=== PATIENT | female | born 1990 | race Two or more races ===

== ENCOUNTER 2022-01-27 18:16 | Emergency (ER) | payer OTHER, MEDICAID ==
[~2022-01-27] VITALS: Ht 162.6 cm; Wt 60.0 kg
[2022-01-27 20:08] LABS: CLARITY URINE CLEAR (CLEAR); COLOR URINE YELLOW (YELLOW); KETONES URINE 1+ (NEGATIVE); LEUKOCYTE ESTERASE URINE 2+ (NEGATIVE); NITRITE URINE NEGATIVE (NEGATIVE); OCCULT BLOOD URINE TRACE (NEGATIVE); PH URINE 5.5 (4.5-8.0); PROTEIN URINE NEGATIVE (NEGATIVE); SPECIFIC GRAVITY URINE 1.021 (1.005-1.030)
[2022-01-27 20:08] LABS: HEMATOCRIT. 39.3 % (36.0-48.0); MEAN CORPUSCULAR HEMOGLOBIN 30.2 pg (28.0-32.0); MEAN CORPUSCULAR VOLUME 91.3 fL (81.0-99.0); MEAN PLATELET VOLUME 7.2 fl (7.4-10.4); PLATELET 248 x1000/uL (130-400); RED BLOOD CELL COUNT 4.31 mill/uL (4.2-5.4); RED CELL DISTRIBUTION WIDTH 13.1 % (11.6-14.6)
[2022-01-27 20:20] LABS: CHLORIDE 106 mEq/L (98-107)
[2022-01-27 20:21] LABS: *AMPHETAMINES SCREEN URINE NEGATIVE (NEGATIVE); *BARBITURATES SCREEN URINE NEGATIVE (NEGATIVE); *BENZODIAZEPINES SCREEN URINE NEGATIVE (NEGATIVE); *COCAINE SCREEN URINE NEGATIVE (NEGATIVE); CANNABINOID URINE SCREEN NEGATIVE (NEGATIVE); METHADONE URINE SCREEN NEGATIVE (NEGATIVE); OPIATES URINE SCREEN NEGATIVE (NEGATIVE); PHENCYCLIDINE URINE SCREEN NEGATIVE (NEGATIVE)
[2022-01-27 20:27] LABS: ETHANOL BLOOD < 10 mg/dL
[2022-01-27 20:37] LABS: HCG SCREEN NEGATIVE
[2022-01-27 22:07] LABS: PLATELET ESTIMATE NORMAL
[2022-01-27] MEDS ORDERED: OLANZAPINE 5MG TABLET ODT PO NR (23:45)
[2022-01-28 10:51] VITALS: BP 136/94
== END 2022-01-28 10:49 | disposition home or self-care (01) ==
LOC: ER 18:16
DX: R46.2 Strange and inexplicable behavior (principal); R73.9 Hyperglycemia, unspecified; Z20.822 Contact with and (suspected) exposure to COVID-19
CPT/HCPCS: 36415; 80053; 80305; 80307; 80320; 80329; 81003; 81025; 84703; 85025; 99285; U0003; G0480

== ENCOUNTER 2022-02-11 06:54 | Emergency (ER) | payer OTHER, MEDICAID ==
[~2022-02-11] VITALS: Ht 162.6 cm; Wt 55.0 kg
[2022-02-11 07:14] VITALS: BP 132/76
== END 2022-02-11 09:36 | disposition home or self-care (01) ==
LOC: ER 07:03
DX: Z00.00 Encounter for general adult medical examination without abnormal findings (principal); F23 Brief psychotic disorder
CPT/HCPCS: 99283